=== PATIENT | male | born 1940 | race Caucasian/White ===

== ENCOUNTER 2022-01-05 11:13 | Emergency (ER) | payer MEDICARE, BC ==
[2022-01-05] MEDS ORDERED: Metoclopramide HCl 10 MG/2 ML VIAL ONE (12:32)
[2022-01-05] MEDS ORDERED: Ketorolac Tromethamine 30 MG/ML VIAL ONE (12:32)
[2022-01-05 12:35] LABS: ALT (SGPT) 17 U/L (8-55); AST (SGOT) 15 U/L (5-34); Albumin 3.9 g/dL (3.4-4.8); Alkaline Phosphatase 74 U/L (40-110); Anion Gap 12 mmol/L (10-20); BUN (Urea Nitrogen) 14 mg/dL (8.4-25.7); Bilirubin, Total 0.5 mg/dL (0.2-1.2); Calc. Creatinine Clearance 0 mL/min (70-130); Calcium 9.4 mg/dL (7.8-10.44); Carbon Dioxide 25 mmol/L (23-31); Chloride 106 mmol/L (98-107); Estimated GFR 73; Globulin 2.7 g/dL (2.4-3.5); Glucose 138 mg/dL (83-110); Potassium 4.1 mmol/L (3.5-5.1); Protein, Total 6.6 g/dL (5.8-8.1); Sodium 139 mmol/L (136-145)
[2022-01-05 12:37] LABS: #Eosinphils 0.2 10x3/uL (0.0-0.5); #Monocytes 0.8 10x3/uL (0.0-1.1); %Basophils 0.5 % (0.0-2.0); %Eosinophils 2.5 % (0.0-6.0); %Lymphocytes 17.7 % (18.0-47.0); %Monocytes 12.7 % (0.0-10.0); %Neutrophils 66.3 % (40.0-75.0); Hemoglobin 13.7 g/dL (13.5-17.5); Mean Corpuscular HGB CONC 33.3 g/dL (32.0-36.0); Mean Corpuscular Hemoglobin 28.5 pg (27.0-33.0); Mean Corpuscular Volume 85.6 fl (81.2-95.1); Mean Platelet Volume 10.1 fl (7.4-10.4); Platelet Count 200 10x3/uL (150-450); RBC Distribution Width 13.4 % (11.5-14.5)
== END 2022-01-05 13:50 | disposition home or self-care (01) ==
LOC: CSHERS 11:13
DX: R51.9 Headache, unspecified (principal)
CPT/HCPCS: 70450; 80053; 85025; 96365; 96375; J1885; J2765